=== PATIENT | female | born 1985 | race Caucasian/White ===

== ENCOUNTER 2022-02-03 21:03 | Emergency (ER) | payer SELFPAY ==
[2022-02-03 21:50] LABS: Urine Blood 3+ (Negative); Urine Glucose Negative (Negative); Urine Protein Negative (Negative); Urine Specific Gravity >=1.030 (1.005-1.030); Urine pH 6.5 (5.0-7.0)
[2022-02-03 21:53] LABS: Urine Specific Gravity/Preg >1.030 (1.005-1.030)
[2022-02-03 22:02] LABS: Absolute Lymphocytes (CBC) 2.3 K/uL (0.7-4.9); Hematocrit 36.9 % (36.0-45.0); Lymphocytes % 25.6 % (15.3-44.8); MPV 9.8 fL (7.6-11.3); RBC Red Blood Cell Count 4.98 M/uL (3.86-4.86)
[2022-02-03 22:20] LABS: Potassium 3.8 mmol/L (3.5-5.1)
--- NOTE | 2022-02-03 23:31 | ER ---
Nurse's Notes [facility] Name: Joanna Colon Age: 36 yrs Sex: Female : 1985 Arrival Date: 02/03/2022 Time: 21:07 Bed 25 Private MD: Diagnosis: Incomplete spontaneous without complication Presentation: 02/03 21:18 Chief complaint: Patient states: "I am 7 weeks , I went to the OB on Saturday2 and they said everything looked good but I had a subchorionic bleed. Since then the bleeding has progressed and it feels like my first miscarriage did." Pt denies any abdominal pain. Coronavirus screen: Vaccine status: Patient reports being unvaccinated. Client denies travel out of the [place] in the last 14 days. At this time, the client does not indicate any symptoms associated with coronavirus-19. Ebola Screen: Patient negative for fever greater than or equal to 101.5 degrees Fahrenheit, and additional compatible Ebola Virus Disease symptoms Patient denies exposure to infectious person. Patient denies travel to an Ebola-affected area in the 21 days before illness onset. No symptoms or risks identified at this time. Initial Sepsis Screen: Does the patient meet any 2 criteria? No. Patient's initial sepsis screen is negative. Does the patient have a suspected source of infection? No. Patient's initial sepsis screen is negative. Risk Assessment: Do you want to hurt yourself or someone else? Patient reports no desire to harm self or others. Onset of symptoms is unknown. 21:18 Method Of Arrival: Ambulatory ab2 21:18 Acuity: JOAN 3 ab2 Triage Assessment: 21:22 General: Appears in no apparent distress. comfortable, Behavior is crying. Pain: Denies ab2 pain. : Reports vaginal bleeding that is with clots, light flow. 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 - Social history:: Smoking status: Patient denies any tobacco usage or history of. Screenin:30 Abuse screen: Denies threats or abuse. Denies injuries from another. Nutritional ld1 screening: No deficits noted. Tuberculosis screening: No symptoms or risk factors identified. Fall Risk None identified. Assessment: 21:30 General: Appears in no apparent distress. comfortable, Behavior is calm, cooperative, ld1 appropriate for age. 21:30 Pain: Denies pain. Neuro: Level of Consciousness is awake, alert, obeys commands, ld1 Oriented to person, place, time, situation. Cardiovascular: Capillary refill < 3 seconds Patient's skin is warm and dry. Rhythm is regular. Respiratory: Airway is patent Respiratory effort is even, unlabored. GI: Abdomen is round non-distended, Reports cramping. : Reports cramping, vaginal bleeding that is bright red, heavy flow. : Urine is cloudy. EENT: No signs and/or symptoms were reported regarding the EENT system. Derm: No signs and/or symptoms reported regarding the dermatologic system. Musculoskeletal: No signs and/or symptoms reported regarding the musculoskeletal system. 22:15 Reassessment: Ultrasound at bedside. ld1 22:44 Reassessment: Pt c/o abdominal cramping - states "It is worse after the ultrasound." ld1 Notified ERP. Vital Signs: 21:18 BP 130 / 74; Pulse 85; Resp 16; Temp 98.0(TE); Pulse Ox 98% on R/A; Weight 107.5 kg; ab2 Height 5 ft. 9 in. (175.26 cm); Pain 0/10; 21:30 BP 116 / 66; Pulse 79; Resp 18; Pulse Ox 99% on R/A; ld1 21:18 Body Mass Index 35.00 (107.50 kg, 175.26 cm) ab2 ED Course: 21:07 Patient arrived in ED. ja2 21:13 Rachel [facility]-C [facility] kb 21:13 Cresencio Anguiano MD is Attending Physician. kb 21:21 Triage completed. ab2 21:23 Arm band placed on right wrist. ab2 21:24 Jillian Berman, JAMIL is Primary Nurse. ld1 21:30 Patient has correct armband on for positive identification. Placed in gown. Bed in low ld1 position. Call light in reach. Side rails up X2. gear coding machine operator on. Pulse ox on. NIBP on. Door closed. Noise minimized. Warm blanket given. 21:30 No provider procedures requiring assistance completed. Inserted saline lock: 20 gauge ld1 in left antecubital area, using aseptic technique. Blood collected. 22:23 US Transvaginal Ob In Process Unspecified. EDMS 23:36 IV discontinued, intact, bleeding controlled, No redness/swelling at site. ld1 Administered Medications: No medications were administered Outcome: 23:31 Discharge ordered by MD. kelley 23:36 Discharged to home ambulatory, with family. ld1 23:36 Condition: stable 23:36 Discharge instructions given to patient, family, Instructed on discharge instructions, follow up and referral plans. Demonstrated understanding of instructions, follow-up care. 23:36 Patient left the ED. ld1 Signatures: Dispatcher [employer] EDMS Rachel Coto, WAREHOUSE PROCESSOR-C WAREHOUSE PROCESSOR-Jillian Ku, RN RN ld1 Sarina Tang2 Kush Kemp2
--- NOTE | 2022-02-03 23:32 | EDPHYS ---
Physician Documentation [facility] Name: Joanna Colon Age: 36 yrs Sex: Female : 1985 Arrival Date: 02/03/2022 Time: 21:07 Bed 25 Private MD: ED Physician Cresencio Anguiano HPI: 02/03 23:09 This 36 yrs old Female presents to ER via Ambulatory with complaints of Vaginal kb Bleeding. 23:10 The patient presents to the emergency department with vaginal bleeding, that is light, kb with clots. The estimated gestational age is 7 weeks. course: care: private OB physician, Leakage of Fluid: none appreciated, Ultrasound: the patient had an ultrasound. Previous pregnancies: in previous pregnancies patient has had. Associated signs and symptoms: Pertinent positives: vaginal bleeding. The patient has experienced a previous episode. The patient has been recently seen by a physician:. Pt states she has had spotting all week. Was seen by OB on Saturday and US revealed IUP with FHT and subchorionic hematoma. States the bleeding got worse and she is passing clots so she came in tonight. Reports she had a previous miscarriage last year and the symptoms are the same. Pt has next appt with OB on saturday. 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 - Social history:: Smoking status: Patient denies any tobacco usage or history of. ROS: 23:09 Constitutional: Negative for fever, chills, and weight loss. kb 23:09 : Positive for vaginal bleeding. 23:09 All other systems are negative. Exam: 23:09 Constitutional: This is a well developed, well nourished patient who is awake, alert, kb and in no acute distress. Head/Face: Normocephalic, atraumatic. ENT: Moist Mucous membranes Respiratory: Respirations even and unlabored. No increased work of breathing. Talking in full sentences Abdomen/GI: Soft, non-tender. No distention Skin: Warm, dry with normal turgor. Normal color. MS/ Extremity: Pulses equal, no cyanosis. Neurovascular intact. Full, normal range of motion. Neuro: Awake and alert, GCS 15, oriented to person, place, time, and situation. Moves all extremities. Normal gait. Psych: Awake, alert, with orientation to person, place and time. Behavior, mood, and affect are within normal limits. Vital Signs: 21:18 BP 130 / 74; Pulse 85; Resp 16; Temp 98.0(TE); Pulse Ox 98% on R/A; Weight 107.5 kg; ab2 Height 5 ft. 9 in. (175.26 cm); Pain 0/10; 21:30 BP 116 / 66; Pulse 79; Resp 18; Pulse Ox 99% on R/A; ld1 21:18 Body Mass Index 35.00 (107.50 kg, 175.26 cm) ab2 MDM: 21:24 Patient medically screened. kb 23:04 Data reviewed: vital signs, nurses notes. Data interpreted: Pulse oximetry: on room air kb is 99 %. Interpretation: normal. 23:09 Counseling: I had a detailed discussion with the patient and/or guardian regarding: the kb historical points, exam findings, and any diagnostic results supporting the discharge/admit diagnosis, lab results, radiology results, the need for outpatient follow up, an OB/Gyne specialist, to return to the emergency department if symptoms worsen or persist or if there are any questions or concerns that arise at home. 23:30 ED course: Pt does not want a pelvic exam at this time. Pt educated to keep appt with kb OB on Saturday and to return for any worsening symptoms or other concerns. Verbal understanding received. . 02/03 21:24 Order name: Abo/rh Typing; Complete Time: 22:31 kb 02/03 21:24 Order name: Basic Metabolic Panel; Complete Time: 22:34 kb 02/03 21:24 Order name: CBC with Diff; Complete Time: 22:09 kb 02/03 21:24 Order name: Quantitative Hcg; Complete Time: 22:34 kb 02/03 21:49 Order name: Urine --Ancillary (enter results); Complete Time: 22:01 ds4 02/03 21:50 Order name: Urine Dipstick-Ancillary; Complete Time: 21:51 EDMS 02/03 21:24 Order name: IV Saline Lock; Complete Time: 21:48 kb 02/03 21:24 Order name: Labs collected and sent; Complete Time: 21:48 kb 02/03 21:24 Order name: NPO; Complete Time: 21:44 kb 02/03 21:24 Order name: Urine Dipstick-Ancillary (obtain specimen); Complete Time: 21:48 kb 02/03 21:24 Order name: Urine Test (obtain specimen); Complete Time: 21:48 kb 02/03 21:24 Order name: US Transvaginal Ob kb 02/03 23:27 Order name: ABO/RH no charge; Complete Time: 23:29 EDMS Administered Medications: No medications were administered Disposition: 02/04 01:16 Co-signature as Attending Physician, Cresencio Anguiano MD. [email or web address] Disposition Summary: 02/03/22 23:31 Discharge Ordered Location: Home kb Condition: Stable kb Diagnosis - Incomplete spontaneous without complication kb Followup: kb - With: Emergency Department - When: As needed - Reason: Worsening of condition Followup: kb - With: Private Physician - When: 2 - 3 days - Reason: Recheck today's complaints, Continuance of care, Re-evaluation by your physician Discharge Instructions: - Discharge Summary Sheet kb - Miscarriage, [id number] kb Forms: - Medication Reconciliation Form kb - Thank You Letter kb - Antibiotic Education kb - Prescription Opioid Use kb Signatures: Dispatcher [employer] EDMS Rachel oCto, DRAMATIC READER-C EMERALD-Cresencio Basurto MD MD 7 Kush Kemp2 Corrections: (The following items were deleted from the chart) 02/03 23:12 23:09 The patient has not recently seen a physician, kb kb 23:12 23:09 The patient has experienced a previous episode, kb kb 23:12 23:10 Pt states she has had spotting all week. Was seen by OB on Saturday and US kb revealed IUP with FHT and subchorionic hematoma. States the bleeding got worse and she is passing clots so she came in tonight. Reports she had a previous miscarriage last year and the symptoms are the same. . kb
[2022-02-04 00:28] VITALS: TEMP 98
[2022-02-04 00:29] VITALS: BP 116/66; O2SAT 99
--- NOTE | 2022-02-05 09:58 | RAD REPORT ---
EXAM DESCRIPTION: US - Transvaginal OB - 02/04/2022 12:23 am CLINICAL HISTORY: Abd cramping, ; Vaginal bleeding TECHNIQUE: Real-time transvaginal obstetrical ultrasound of the maternal pelvis and a first trimeste r with image documentation. Transvaginal imaging was used for better evaluation of the fe tus and adnexa. COMPARISON: No relevant prior studies available. FINDINGS: Gestation: Single intrauterine gestational sac measuring 6.4 mm corresponding to an erica mated gestational age of 5 weeks 2 days. [place]-rump length measures 8 mm corresponding to an estimate d gestational age of 6 weeks 6 days. No demonstrable cardiac activity. A small yolk sac is pres ent. Heterogeneity surrounding the gestational sac, nearly circumferentially. Placenta/amniotic fluid: Cannot be adequately evaluated due to the early gestational age. Uterus/cervix: The uterus is retroverted and measures 10.6 x 6.1 x 7 cm. No myometrial mass. Ovaries: Neither ovary is visualized. No mass. Free fluid: Small amount of free fluid within the cul-de-sac. IMPRESSION: Single intrauterine gestation. Discordant gestational age based on mean sac diameter and crown-rump length. No demonstrable cardiac activity. Findings are most compatible with d emise. Possible near circumferential subchorionic hemorrhage. THIS REPORT CONTAINS FINDINGS THAT MAY BE CRITICAL TO PATIENT CARE: The findings were verbally discu ssed via telephone conference with Rachel Coto NP, on 02/03/2022 11:06 PM CDT. The results were a cknowledged and understood. Electronically signed by: Benji Pelayo MD 02/03/2022 11:06 PM CDT Due to temporary technical issues with the PACS/Fluency reporting system, reports are being signed by the in house radiologist without review as a courtesy to ensure prompt reporting. The interpreting r adiologist is fully responsible for the content of the report.
== END 2022-02-03 23:36 | disposition home or self-care (01) ==
LOC: ER 21:03
DX: O03.4 Incomplete spontaneous abortion without complication (principal)
CPT/HCPCS: 36415; 76817; 80048; 81003; 81025; 84702; 85025; 86900; 86901; 99284